=== PATIENT | male | born 1990 | race Caucasian/White ===

== ENCOUNTER 2018-09-23 07:19 | Emergency (ER) | payer OTHER, SELFPAY ==
--- NOTE | 2018-09-23 07:48 | RAD ---
XR Foot Rt 3 View STANDARD History: [Injury] Comparison: None. Findings: There is a fracture of the medial malleolus and posterior malleolus. Likely a lateral malle olar fracture. This Lisfranc interval is maintained. Impression: Ankle fractures. Ankle radiographs are recommended.
[2018-09-23] MEDS ORDERED: Ketorolac Tromethamine 60 MG/2 ML VIAL ONE ×2 (07:59→08:18)
--- NOTE | 2018-09-23 08:26 | RAD ---
RIGHT ANKLE 3 VIEWS: HISTORY: Injury, right ankle pain FINDINGS: Soft tissue swelling is present. The ankle mortise is maintained. There is widening of the medial tib iotalar space. A minimally displaced fracture of the medial malleolus is seen.
--- NOTE | 2018-09-23 08:27 | RAD ---
RIGHT LEG 2 VIEWS: HISTORY: Injury, right ankle pain, right leg pain FINDINGS: Soft tissue swelling is present. The ankle mortise is maintained. There is widening of the medial tib iotalar space. A minimally displaced fracture of the medial malleolus is seen. There are minimally displaced oblique fractures involving the proximal shaft of the right fibula.
== END 2018-09-23 09:55 | disposition home or self-care (01) ==
LOC: ERS 07:19
DX: S82.841A Displaced bimalleolar fracture of right lower leg, initial encounter for closed fracture (principal); S82.831A Other fracture of upper and lower end of right fibula, initial encounter for closed fracture; S82.101A Unspecified fracture of upper end of right tibia, initial encounter for closed fracture; X50.9XXA Other and unspecified overexertion or strenuous movements or postures, initial encounter; Y93.72 Activity, wrestling
CPT/HCPCS: 29505; 96372; J1885

== ENCOUNTER 2018-10-01 12:44 | Day surgery (SDC) | payer SELFPAY ==
[2018-09-30 10:14] VITALS: BMI 26.4
[2018-10-01] MEDS ORDERED: Bupivacaine HCl 0.5%/Epinephrine 1:200,000/PF 30 ml Vial ONE (12:59)
[2018-10-01] MEDS ORDERED: Ropivacaine 0.5% HCl/PF (150 MG/30 ML VIAL) ONE (12:59)
[2018-10-01] MEDS ORDERED: Ropivacaine 0.2% HCl/PF (40 MG/20 ML VIAL) ONE (12:59)
[2018-10-01] MEDS ORDERED: PROPOFOL 200 MG/20 ML VIAL ONE (13:39)
[2018-10-01] MEDS ORDERED: Ketorolac Tromethamine 30 MG/ML VIAL ONE (13:39)
[2018-10-01] MEDS ORDERED: Ondansetron PF 4 MG/2 ML Vial ONE (13:39)
[2018-10-01] MEDS ORDERED: Dexamethasone 20 MG/5 ML VIAL ONE (13:39)
[2018-10-01] MEDS ORDERED: Lidocaine 1% PF 5 ML VIAL ONE (13:39)
[2018-10-01] MEDS ORDERED: Fentanyl 100 MCG/2 ML VIAL ONE ×2 (14:30→15:04)
[2018-10-01] MEDS ORDERED: Midazolam HCl 2 mg/2 ml Vial ONE ×2 (14:30→15:04)
[2018-10-01] MEDS ORDERED: Ondansetron PF 4 MG/2 ML Vial IVP PRN (15:09)
[2018-10-01] MEDS ORDERED: HYDROcodone/Acetaminophen 10/325 mg Tablet PO PRN ×2 (15:09)
[2018-10-01] MEDS ORDERED: Ropivacaine 0.2% 550 ML 550 ML NERVE BLCK SCH (15:09)
[2018-10-01] MEDS ORDERED: traMADol HCl 50 MG TAB PO PRN ×2 (15:09)
[2018-10-01] MEDS ORDERED: Zolpidem Tartrate 5 MG TAB PO PRN (15:09)
[2018-10-01] MEDS ORDERED: Promethazine HCl 25 MG/ML VIAL IM PRN (15:09)
[2018-10-01] MEDS ORDERED: Fentanyl 100 MCG/2 ML VIAL SLOW IVP PRN (15:09)
--- NOTE | 2018-10-01 16:24 | RAD ---
EXAM: LEFT ANKLE THRE VIEWS: 10/01/18 HISTORY: Status post ORIF. Internal fixation screws traverse the distal tibia and fibula as well as two internal fixation screws stabilizing the medial malleolus. No significant malalignment. IMPRESSION: Status post ORIF with screw placement. POS: C
[2018-10-01] MEDS ORDERED: Meperidine HCl/PF 25 MG/ML VIAL ONE (16:35)
[2018-10-01] MEDS ORDERED: Sodium Chloride 0.9% 10 ML ONE (17:36)
[2018-10-01] MEDS ORDERED: Ketorolac Tromethamine 30 MG/ML VIAL IVP SCH (18:00)
--- NOTE | 2018-10-01 22:36 | OP ---
DATE OF PROCEDURE: 10/01/2018 PROCEDURE PERFORMED: Open reduction and internal fixation of right ankle fracture with syndesmosis fixation. PREOPERATIVE DIAGNOSIS: Right medial malleolus fracture with fibular fracture and syndesmosis disruption. POSTOPERATIVE DIAGNOSIS: Right medial malleolus fracture with fibular fracture and syndesmosis disruption. COMPLICATIONS: None. ESTIMATED BLOOD LOSS: Minimal. ANESTHESIA: General plus regional. PROFESSOR OF RHETORIC: Odessa Silva PA-C IMPLANT: Synthes 4.0 mm screws x4. INDICATIONS: Dustin is a 28-year-old male, who fractured his ankle. He was indicated for fixation to restore the anatomic alignment as well as restore the syndesmosis. Risks have been reviewed in detail. Risks include infection, pain, scarring, bleeding, nerve or vascular injury, and others. He is at risk for DVT or PE. DESCRIPTION OF PROCEDURE: Mr. Chan was identified in the preoperative holding area. His correct extremity was marked. He was carried to the operating room. He was positioned supine. General anesthesia was induced. A multidisciplinary time-out was performed. The right lower extremity was prepped and draped in a sterile fashion. We began the procedure with a medial approach to the ankle. We dissected down through the subcutaneous tissues to the fascia, which was incised. We exposed the medial malleolus fracture, which was displaced. We irrigated the joint and removed impinging soft tissues. At this point, we reduced the fracture back into its anatomic position. We placed 2 partially threaded screws across the fracture site. These held the fracture well. Next, we performed a stress view x-ray, which was positive. We then made a small incision over the lateral malleolus and placed a reduction clamp. We dorsiflexed the foot and squeezed the clamp reducing the syndesmosis. Next, we placed two 4.0 screws across the syndesmosis through the fibula into the tibia. This stabilized the syndesmosis as well. Finally, we took final images including repeat stress view x-ray. We thoroughly irrigated with copious lavage. We then closed with a 2-0 Vicryl suture followed by nylon for the skin. A sterile dressing, and a splint was placed. The patient was taken to the recovery room at this point without complication. Job ID: [id number]
== END 2018-10-01 18:10 | disposition home or self-care (01) ==
LOC: SDC 12:44
PROVIDERS: ATTEND Orthopaedic Surgery
PROC: 0QSG04Z Reposition Right Tibia with Internal Fixation Device, Open Approach (ICD-10-PCS; principal; 2018-10-01)
DX: S82.51XA Displaced fracture of medial malleolus of right tibia, initial encounter for closed fracture (principal); S93.431A Sprain of tibiofibular ligament of right ankle, initial encounter; X58.XXXA Exposure to other specified factors, initial encounter
CPT/HCPCS: 76000; A4306; C1713; J0690; J2175; J2250; J2795; J3010

== ENCOUNTER → 2018-10-02 | Day surgery (SDC) | payer SELFPAY ==
[~2018-10-02] MED LIST: Bupivacaine HCl 0.5%/Epinephrine 1:200,000/PF 30 ml Vial ONE
== END ==
LOC: SDC/OP 15:19
PROVIDERS: ATTEND Orthopaedic Surgery
PROC: 3E0T3BZ Introduction of Anesthetic Agent into Peripheral Nerves and Plexi, Percutaneous Approach (ICD-10-PCS; principal; 2018-10-02)
DX: G89.18 Other acute postprocedural pain (principal)
CPT/HCPCS: J0670